=== PATIENT | female | born 1940 | race Asian ===

== ENCOUNTER → 2019-06-01 | Outpatient (CLI) | payer MEDICARE, OTHER ==
[~2019-06-01] MED LIST: AMLO-150 PO; ATOR-2 PO; BENA40TA3 PO; CALC1CAP8 PO; CITA40TA5 PO; DOCU100T6 PO; ESOM40CA PO; FENO145T32 PO; OXYC-302 PO
== END | disposition home or self-care (01) ==
LOC: CFH 08:49
PROVIDERS: ATTEND Family Medicine
DX: Z12.31 Encounter for screening mammogram for malignant neoplasm of breast (principal); M85.89 Other specified disorders of bone density and structure, multiple sites; N95.1 Menopausal and female climacteric states; N95.8 Other specified menopausal and perimenopausal disorders
CPT/HCPCS: 77063; 77067; 77080